=== PATIENT | female | born 2000 | race Caucasian/White ===

== ENCOUNTER 2020-11-16 09:13 | Emergency (ER) | payer OTHER ==
[~2020-11-16] VITALS: Ht 152.4 cm; Wt 81.7 kg
--- NOTE | ~2020-11-16 | EMS ---
[address] [address] EMS Patient Care Report Name: ROSELINE MONTES Room #: DEP YU Leary#: [id number] Admission: 11/16/20 Attend Phys: Discharge: 11/16/20 Date of : [birth year] Report #: [id number] THIS REPORT FOR: //name// Report Transmitted: 11/17/2020 14:13 EMS Care Summary [place], [place]/[facility] Incident [id number] @ 11/16/2020 08:46 Incident Location [address] [place] [address] [address] [place] [address] Patient ROSELINE MONTES Female, 20 Years 2000 Patient Address [address] [place] [id number] Patient History Kidney Stone, Patient Allergies No known allergies, Patient Medications None Reported, Chief Complaint abdominal pain Disposition Transported No Lights/[place] [facility] Reason Sick Person Transported To [facility] Narrative Upon arrival PT was sitting in the upright position on chair in doctors office. PT had a CC of abdominal pain with onset of this morning. PT was assisted to stretcher and taken to back of ambulance for further medical evaluation and [address] [address] EMS Patient Care Report Name: ROSELINE MONTES Room #: DEP Gibran#: [id number] Admission: 11/16/20 Attend Phys: Discharge: 11/16/20 Date of : [birth year] Report #: [id number] intervention. PT was then monitored for any change in condition while en route to hospital. Initial Vitals @08:59P: 101,R: 18,BP: 157/91,Pain: 4/10,GCS: 15,SpO2: 98,Revised Trauma: 12, @09:05P: 75,R: 18,BP: 124/86,Pain: 4/10,GCS: 15,SpO2: 74,Revised Trauma: 12, Assessments @08:53MENTAL:No Abnormalities,SKIN:No Abnormalities,HEENT:Head/Face: No Abnormalities,Eyes: No Abnormalities,Neck/Airway: No Abnormalities,LUNG SOUNDS:General: Vomiting,General: Nausea,ABDOMEN:General: Vomiting,General: Nausea,PELVIS//GI:No Abnormalities,EXTREMITIES:Capillary Refill: Right Upper: < 2 Sec,Capillary Refill: Left Upper: < 2 Sec,PULSE:Radial: 2+ Normal,NEURO:No Abnormalities, Impression Abdominal Pain Procedures @08:53ALS AssessmentResponse: UnchangedSucceeded Timeline 08:41,Call Received 08:41,Dispatch Notified 08:46,Dispatched 08:47,En Route 08:52,On Scene 08:53,At Patient 08:53,ALS Assessment,Response: UnchangedSucceeded, 08:59,BP: 157/91 M,PULSE: 101,RR: 18 R,SPO2: 98 Ox,ETCO2: ,BG: ,PAIN: 4,GCS: 15, 09:02,Depart Scene 09:05,BP: 124/86 M,PULSE: 75,RR: 18 R,SPO2: 74 Ox,ETCO2: ,BG: ,PAIN: 4,GCS: 15, 09:07,At Destination 09:23,Call Closed Disclaimer [email or web address] Copyright 2020 [employer] This EMS Care Summary contains data elements from the applicable legal record (which may be displayed differently). It is designed to provide pertinent information for the following purposes: continuity of care, clinical quality, and state data reporting. The complete legal record is available to ED staff and administrators of the receiving hospital in [employer] Patient Tracker. All data is provided "as is."
[2020-11-16 09:34] LABS: ABSOLUTE NEUTROPHILS 12.4 thou/uL (1.4-8.2); BASOPHILS 0.4 % (0.0-2.0); EOSINOPHILS 0.1 % (0.0-3.0); HEMATOCRIT 40.8 % (37.0-47.0); HEMOGLOBIN 13.8 gm/dL (12.0-15.0); LYMPHOCYTES 9.3 % (24.0-44.0); MCH 29.8 pg (26.0-34.0); MCHC 33.8 g/dL (28.0-37.0); MONOCYTES 2.7 % (1.0-8.0); PLATELET COUNT 286 thou/uL (150-400); POLYS 87.5 % (36.0-66.0); RBC 4.63 mil/uL (4.20-5.00); RDW 12.8 % (10.5-14.5); WBC 14.1 thou/uL (4.0-11.0)
[2020-11-16 09:38] LABS: CALCIUM 9.7 mg/dL (8.5-10.1); CREATININE 1.1 mg/dL (0.6-1.0); POTASSIUM 4.1 mmol/L (3.5-5.1)
[2020-11-16 09:44] LABS: ALBUMIN 3.7 g/dL (3.4-5.0); TOTAL BILIRUBIN 0.3 mg/dL (0.2-1.0)
[2020-11-16 09:52] LABS: URINE BILIRUBIN NEGATIVE (Negative); URINE BLOOD 3+ (Negative); URINE COLOR YELLOW; URINE GLUCOSE-RANDOM* NEGATIVE (Negative); URINE KETONES TRACE (Negative); URINE LEUKOCYTES-REFLEX NEGATIVE (Negative); URINE NITRITE-REFLEX NEGATIVE (Negative); URINE PROTEIN (DIPSTICK) TRACE (Negative); URINE SPECIFIC GRAVITY >= 1.030 (1.005-1.035); URINE UROBILINOGEN 0.2 E.U./dl (0.2-1.0)
[2020-11-16 09:53] LABS: URINE CLARITY CLOUDY
[2020-11-16 09:55] LABS: BACTERIA-REFLEX None Seen /HPF (None Seen); CRYSTALS None Seen /LPF (None Seen); SQUAMOUS 4-10 Moderate /LPF (0-3); URINE RBC >20 Many /HPF (NONE SEEN); URINE WBC-REFLEX None Seen /HPF (0-5)
[2020-11-16] MEDS ORDERED: NORCO 10-325 T1 EACH PO (12:59)
[2020-11-16] MEDS ORDERED: ZOFRAN ODT4 MG PO (12:59)
[2020-11-16] MEDS ORDERED: FLOMAX0.4 MG PO (12:59)
[2020-11-16 13:10] VITALS: BP 103/46
== END 2020-11-16 13:12 | disposition home or self-care (01) ==
LOC: ER 09:13
PROVIDERS: Emergency Medicine
DX: N20.1 Calculus of ureter (principal); R10.31 Right lower quadrant pain